=== PATIENT | female | born 1955 | race Caucasian/White ===

== ENCOUNTER → 2020-05-28 13:57 | Outpatient (CLI) | payer SELFPAY ==
--- NOTE | 2020-05-28 14:05 | VDLE_ITS ---
Reason For Study: Pain, Swelling RIGHT LEFT GSV is normal. CFV is compressible, spontaneous, phasic, CFV is compressible, spontaneous, phasic, competent, and demonstrates normal competent and demonstrates normal augmentation. augmentation. FV is compressible, spontaneous, phasic, FV is compressible, spontaneous, phasic, competent and demonstrates normal competent and demonstrates normal augmentation. augmentation. POP V is compressible, spontaneous, phasic, POP V is compressible, spontaneous, phasic, competent and demonstrates normal competent and demonstrates normal augmentation. augmentation. T/P Trunk is compressible. T/P Trunk is compressible. PTV is compressible. PTV is compressible. LT PerV is compressible. RT PerV is compressible. SFJ is competent and measures 1.09 x 1.11 cm. SFJ is INCOMPETENT and measures 1.3 x 1.3 cm. GSV proximal thigh measures 0.39 x 0.37 cm. GSV proximal thigh measures 0.66 x 0.79 cm. GSV at knee measures 0.17 x 0.21 cm. GSV at knee measures 0.48 x 0.50 cm. GSV is competent throughout. GSV INCOMPETENT throughout for greater than SSV proximal calf is competent and measures 0.5 seconds. 0.12 x 0.17 cm. SSV at junction is competent and measures 0.26 x 0.34 cm. Procedure This is a venous duplex using B-mode, color flow and spectral Doppler. Exam performed in department. A preliminary report was called and/or faxed to [facility]. Interpretation Summary Deep veins of the lower extremities are bilaterally patent and compressible segmentally. There is no evidence of deep vein thrombosis on either side. Valvular competence appears intact within the proximal deep venous systems bilaterally. The great saphenous veins appear bilaterally patent and compressible segmentally. The right sapheno-femoral junction is incompetent . The left sapheno- femoral junction is competent . The right great saphenous vein appears segmentally incompetent. The left great saphenous vein appears segmentally competent. Small saphenous veins are patent and competent bilaterally. Ordering Physician: Adan Younger Performed By: Alesia Gonzalez RVT and Student
== END ==
PROVIDERS: Referring Provider Surgery; Visit Provider Surgery
DX: M79.89 Other specified soft tissue disorders (principal)
CPT/HCPCS: 93970

== ENCOUNTER 2020-06-02 10:51 | Outpatient (RCR) | payer SELFPAY ==
[2020-06-02 11:36] VITALS: BP 159/85; PULSE 92; RESP 16; TEMP 36.6; BMI 32.3
--- NOTE | 2020-06-02 13:00 | PCM.WC.HP ---
(1) Chronic venous insufficiency Status: Chronic Code(s): I87.2 - Venous insufficiency (chronic) (peripheral) (2) Leg swelling Status: Chronic Code(s): M79.89 - Other specified soft tissue disorders (3) Leg edema, right Status: Chronic Code(s): R60.0 - Localized edema (4) Venous stasis dermatitis of right lower extremity Status: Chronic Code(s): I87.2 - Venous insufficiency (chronic) (peripheral) (5) Leg pain Status: Chronic Qualifiers: Laterality: right Qualified Code(s): M79.604 - Pain in right leg Code(s): M79.606 - Pain in leg, unspecified (6) Hypertension Status: Chronic Code(s): I10 - Essential (primary) hypertension (7) Obesity (BMI 30.0-34.9) Status: Chronic Code(s): E66.9 - Obesity, unspecified History of Present Illness Date of Service: 06/02/20 Chief Complaint: Venous stasis dermatitis, swelling, and edema of the right lower extremity. History of Wound: This is a relatively healthy 65-year-old white female who presented recently complaining of severe leg problems. Patient stated I have varicose veins and swelling. The symptoms have been manifest in the right lower extremity, and have been present for only approximately 1 month. She was briefly treated with a course of prednisone by her primary care physician. However, she is not currently taking prednisone. She sleeps on a flat mattress at night. She is also active. She denies a history of thrombophlebitis. Pain has accompanied the swelling and edema in her right lower extremity. Past Medical History Past Medical History: Chronic Problems Chronic venous insufficiency (Chronic) Leg swelling (Chronic) Leg edema, right (Chronic) Venous stasis dermatitis of right lower extremity (Chronic) Leg pain (Chronic) Hypertension (Chronic) Obesity (BMI 30.0-34.9) (Chronic) Past Medical History: Patient has a history of hypertension, recently diagnosed. She otherwise denies a history of myocardial infarction, congestive heart failure, diabetes mellitus, cerebrovascular accident, cancer, renal disease, pulmonary disease, thyroid disease, hyperlipidemia, gastroesophageal reflux disease, and arthritis. Surgical History: - - The patient is undergone a x2 in the past. She has had a cyst removed from her throat. She is a G3, P3 Ab0. Allergies/Adverse Reactions: Allergies No Known Allergies Allergy (Verified 06/02/20 11:59) Home Medications: Ambulatory Orders Medication Instructions Recorded Lisinopril 5 mg PO DAILY 06/02/20 - Family History Paternal - - Patient's father at the age of 84 with a history of lung cancer. Patient's mother at the age of 81 with a history of lupus. 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. She denies the use of tobacco products. She consumes alcohol in moderate amounts. She is . Lives: Spouse/ Significant Other Smoking Status: Former smoker Tobacco Use: Non-smoker Alcohol: Occasional Drugs: None Review of Systems Constitutional: Denies: Chills, Fever, Weight Change Eyes: Denies: Pain, Vision Change HEENT: Denies: Difficulty Hearing, Difficulty Swallowing, Sinus Congestion Cardiovascular: Denies: Chest Pain, Palpitations Respiratory: Denies: Cough, Shortness of Breath Gastrointestinal: Denies: Diarrhea, Nausea, Vomiting Genitourinary: Denies: Dysuria, Hematuria Endocrine: Denies: Heat/ Cold Intolerance, Polydipsia, Polyuria Hematologic/ Lymphatic: Denies: Easy Bruising, Easy Bleeding - Physical Exam Vital Signs Temp Pulse Resp BP 98 F 92 16 159/85 H 06/02/20 11:36 06/02/20 11:36 06/02/20 11:36 06/02/20 11:36 General: Alert, Oriented x3, Cooperative, No apparent distress, Well developed, Well nourished HEENT: Atraumatic, PERRLA, EOMI, Normocephalic Oral: Moist Mucosa Neck: No JVD Lungs: Normal air movement Abdomen: Non-Distended Extremities: No clubbing, No cyanosis, No Calf Tenderness, - - Swelling and edema are noted in the patient's right lower extremity, which is moderate. Severe scaly venous stasis dermatitis and erythema are noted in the patient's right lower extremity. There are scattered superficial excoriations. There is no obvious sign of infection or cellulitis. Skin: - - Numerous dried scabs noted on the patient's left lower extremity and torso. Wound Measurements and Assessment WC - Nurse 1 - General Ulcer Measurement Start: 06/02/20 11:36 Freq: Status: Active Protocol: Activity Type Activity Date Activity User E-Sign Co-Sign Detail Recorded Client Recorded Date Recorded By Document 06/02/20 11:36 [facility] [id number] 06/02/20 11:55 [facility] 06/02/20 11:36 Wound Center Nurse 1 [Ulcer Assessment] #1- RLE CIRCUMFERENTIAL -Combined with other wound No -Current Size (cm) - Length 46 -Current Size (cm) - Width 40.8 -Current Size (cm) - Depth 0.1 -Total Square Cm 1876.8 -Date of Last Picture (Recall this 06/02/20 field) -Photo Taken Yes -Epithelialization None Present -Tunneling No -Undermining/Tunneling No -Circular Undermining No -Exudate Amt Medium -Exudate Type Serous -Wound Margin Distinct, Outline Attached -Granulation Amt Medium (34-66%) -Granulation Quality Red -Slough/Fibrin Yes -Necrosis Amt Small (1-33%) -Necrotic Tissue Type Adherent Slough -Texture (Azeb-wound Skin Appearance) No Abnormality, Excoriation, Scarring,Rash -Moisture (Azeb-wound Skin Appearance Assessed,Dry/ ) Scaly -Color (Azeb-wound Skin Appearance) Assessed, Erythema, Hemosiderin Staining -Temperature (Azeb-wound Skin No Abnormality Appearance) (Pt Warm) -Tenderness on Palpation (Azeb-wound Yes Skin Appearance) -Ulcer Cleansing SOAPY WATER -Foul Odor after Cleansing Yes [Edema Assessment] -Lower Limb Edema Present Yes -Right Calf (cm) 40.8 -Right Ankle (cm) 26.5 -Left Calf (cm) 39.1 -Left Ankle (cm) 24.2 Musculoskeletal: No Muscle Wasting Neurological: Cranial nerves II-XII grossly intact, Neuro grossly intact Psych/Mental Status: Normal Affect, Appropriate, Alert and oriented to time, place, person, mood and affect Debridement Note No debridement was completed today Assessment/Plan Active Problems Chronic venous insufficiency (Chronic) Leg swelling (Chronic) Leg edema, right (Chronic) Venous stasis dermatitis of right lower extremity (Chronic) Leg pain (Chronic) Hypertension (Chronic) Obesity (BMI 30.0-34.9) (Chronic) Assessment: This is a 65-year-old generally healthy and active white female who presents with findings suggestive of chronic venous insufficiency and venous stasis dermatitis in her right lower extremity. These manifestations are relatively recent in origin, having started approximately 1 month ago. A recent venous duplex examination, performed on May 28, 2020, reveals incompetence of the right saphenofemoral junction and the right great saphenous vein. There was no evidence of thrombophlebitis. In addition, routine laboratory studies have been recently performed, on May 30, 2020, with results as follows: White blood count 8.1, hemoglobin 13.4, hematocrit 41.9, platelets 371,000, sodium 139, potassium 4.1, chloride 104, BUN 8, creatinine 0.95, glucose 95, hemoglobin A1c 5.4, calcium 9.5, total bilirubin 0.50, AST 30, ALT 42, alkaline phosphatase 92, total protein 7.6, albumin 3.8, triglycerides 116, cholesterol 199, LDL cholesterol 94, VLDL cholesterol 23, HDL cholesterol 82. Plan: A lengthy discussion has been undertaken with the patient with regard to conservative treatment measures appropriate to the management of her right lower extremity presenting symptoms. The patient has been advised to continue sleeping on a flat mattress at night. She has been advised to elevate her lower extremities even during daytime hours. Elevation is to be to heart level, or higher. This is to be implemented as much as possible. Activity has been encouraged. Prolonged idle sitting has been discouraged. The patient has been advised to lose weight. She has been advised to optimize her nutritional intake. We are to implement compression by means of a multilayer Unna boot, which will be applied to the patient's right lower extremity. This will be changed twice weekly. It is anticipated that the compression, and the zinc oxide, will have beneficial effects with regard to the patient's suspected venous stasis dermatitis. Additionally, the multiple scabs on the patient's left lower extremity and torso are thought to represent a different etiology. She has been encouraged to seek evaluation by her primary care physician or by a gravity prospecting operator helper. The patient is to return in 1 week for reassessment. The patient stands 5 feet 5 inches tall. She weighs 200 pounds. Her BMI is 33.3, places her in an obese class I category. Weight loss has been recommended, in collaboration with her primary care physician in this regard has been advised. The patient is not a smoker. Influenza vaccine was not administered today.
== END 2020-06-08 23:59 ==
LOC: WC 10:51
PROVIDERS: Referring Provider Surgery; Visit Provider Surgery
DX: I87.2 Venous insufficiency (chronic) (peripheral) (principal); M79.89 Other specified soft tissue disorders; E66.9 Obesity, unspecified; R60.0 Localized edema; I10 Essential (primary) hypertension; M79.604 Pain in right leg; Z68.33 Body mass index [BMI] 33.0-33.9, adult
CPT/HCPCS: 29580; 99213; G0463

== ENCOUNTER 2020-06-30 09:00 | Outpatient (RCR) | payer SELFPAY ==
[2020-06-09 00:44] VITALS: BP 159/85; PULSE 92; RESP 16; TEMP 36.6
[2020-06-17 13:15] VITALS: BP 159/82; PULSE 98; RESP 18; TEMP 36.3; BMI 32.3
[2020-06-17 13:20] VITALS: BMI 32.3
[2020-06-17 13:57] VITALS: BP 155/88
--- NOTE | 2020-06-17 14:22 | PCM.WC.HP ---
(1) Chronic venous insufficiency Status: Chronic Code(s): I87.2 - Venous insufficiency (chronic) (peripheral) (2) Leg swelling Status: Chronic Code(s): M79.89 - Other specified soft tissue disorders (3) Leg edema, right Status: Chronic Code(s): R60.0 - Localized edema (4) Venous stasis dermatitis of right lower extremity Status: Chronic Code(s): I87.2 - Venous insufficiency (chronic) (peripheral) (5) Leg pain Status: Chronic Qualifiers: Laterality: right Code(s): M79.606 - Pain in leg, unspecified (6) Hypertension Status: Chronic Code(s): I10 - Essential (primary) hypertension (7) Obesity (BMI 30.0-34.9) Status: Chronic Code(s): E66.9 - Obesity, unspecified History of Present Illness Date of Service: 06/17/20 Chief Complaint: Venous stasis dermatitis, swelling, and edema of the right lower extremity. History of Wound: This is a relatively healthy 65-year-old white female who presented recently complaining of severe leg problems. Patient stated I have varicose veins and swelling. The symptoms have been manifest in the right lower extremity, and have been present for only approximately 1 month. She was briefly treated with a course of prednisone by her primary care physician. However, she is not currently taking prednisone. She sleeps on a flat mattress at night. She is also active. She denies a history of thrombophlebitis. Pain has accompanied the swelling and edema in her right lower extremity. Past Medical History Past Medical History: Chronic Problems Chronic venous insufficiency (Chronic) Leg swelling (Chronic) Leg edema, right (Chronic) Venous stasis dermatitis of right lower extremity (Chronic) Leg pain (Chronic) Hypertension (Chronic) Obesity (BMI 30.0-34.9) (Chronic) Surgical History: - - The patient is undergone a x2 in the past. She has had a cyst removed from her throat. She is a G3, P3 Ab0. Allergies/Adverse Reactions: Allergies No Known Allergies Allergy (Verified 06/02/20 11:59) Home Medications: Ambulatory Orders Medication Instructions Recorded Lisinopril 5 mg PO DAILY 06/02/20 - Family History Paternal - - Patient's father at the age of 84 with a history of lung cancer. Patient's mother at the age of 81 with a history of lupus. Smoking Status: Former smoker Tobacco Use: Non-smoker Review of Systems Constitutional: Denies: Chills, Fever, Weight Change Eyes: Denies: Pain, Vision Change HEENT: Denies: Difficulty Hearing, Difficulty Swallowing, Sinus Congestion Cardiovascular: Denies: Chest Pain, Palpitations Respiratory: Denies: Cough, Shortness of Breath Gastrointestinal: Denies: Diarrhea, Nausea, Vomiting Genitourinary: Denies: Dysuria, Hematuria Endocrine: Denies: Heat/ Cold Intolerance, Polydipsia, Polyuria Hematologic/ Lymphatic: Denies: Easy Bruising, Easy Bleeding - Physical Exam Vital Signs Temp Pulse Resp BP 97.3 F L 98 18 155/88 H 06/17/20 13:15 06/17/20 13:15 06/17/20 13:15 06/17/20 13:57 General: Alert, Oriented x3, Cooperative, No apparent distress, Well developed, Well nourished HEENT: Atraumatic, PERRLA, EOMI, Normocephalic Oral: Moist Mucosa Neck: No JVD Lungs: Normal air movement Abdomen: Non-Distended Extremities: No clubbing, No cyanosis, No Calf Tenderness, - - Moderate swelling and edema persist in the patient's right lower extremity. There are several superficial excoriations. Dermatitic changes persist, though much improved. Addt'l Wound Findings: There are several superficial excoriations in the right lower extremity. There is no sign of infection or cellulitis. The dermatitic changes in the right lower extremity persist, but are markedly improved. Wound Measurements and Assessment WC - Nurse 1 - General Ulcer Measurement Start: 06/17/20 13:15 Freq: Status: Active Protocol: Activity Type Activity Date Activity User E-Sign Co-Sign Detail Recorded Client Recorded Date Recorded By Document 06/17/20 13:15 IN [id number] 06/17/20 13:18 IN 06/17/20 13:15 Wound Center Nurse 1 [Ulcer Assessment] #1- RLE CIRCUMFERENTIAL -Current Size (cm) - Length 18 -Current Size (cm) - Width 38.5 -Total Square Cm 693.0 -Wound Margin Flat & Intact -Granulation Amt Large (67-100%) -Granulation Quality Pale,Vantage -Texture (Azeb-wound Skin Appearance) Assessed -Moisture (Azeb-wound Skin Appearance Assessed,Dry/ ) Scaly -Color (Azeb-wound Skin Appearance) Assessed -Temperature (Azeb-wound Skin No Abnormality Appearance) (Pt Warm) -Tenderness on Palpation (Azeb-wound No Skin Appearance) -Ulcer Cleansing Rinsed/ Irrigated with Saline -Foul Odor after Cleansing No -Anesthetic Used 4% Lidocaine Solution [Edema Assessment] -Right Calf (cm) 41 -Right Ankle (cm) 25.5 WC - Nurse 3 - General Ulcer D/C NN Start: 06/17/20 13:15 Freq: Status: Active Protocol: Activity Type Activity Date Activity User E-Sign Co-Sign Detail Recorded Client Recorded Date Recorded By Document 06/17/20 13:57 RB [id number] 06/17/20 13:59 RB 06/17/20 13:57 Wound Care Nurse 3 [Wound Dressing] #1- RLE CIRCUMFERENTIAL -Ulcer Cleansing Rinsed/ Irrigated with Saline [Compression Applied] Right -Multi-Layered Wrap Application Unna Boot - Right ($) [Post Procedure Tolerated] -Treatment Response Procedure Tolerated Well Vital Signs [Blood Pressure] -Blood Pressure (90/60-120/80) 155/88 H -Blood Pressure Mean (mm Hg) 110 -Source Monitor -Position Semi-Fowlers -Blood Pressure Location Left Arm Pain Scale: 0-10 Numeric [Pain] -Is Patient Pain Free? Yes Teaching: Wound Center [Wound Center Education] (Items with an * have Printed Materials Available- Please identify what is given to patient under the Teaching materials given to patient and caregiver Section. Compression Wraps & Stockings -Person Taught Patient -Teaching Method Discussion -Response to teaching Verbalize understanding - Visit Discharge [Visit Discharge Information] -Discharge Condition Stable -Ambulatory Status Ambulatory -Transportation Private Auto -Medication Reconcilliation completed No & provided to patient/care provider -Clinical Summary of Care Provided Yes Musculoskeletal: No Muscle Wasting Neurological: Cranial nerves II-XII grossly intact, Neuro grossly intact Psych/Mental Status: Normal Affect, Appropriate, Alert and oriented to time, place, person, mood and affect Debridement Note Post-Debridement Measurements/Treatment WC - Nurse 3 - General Ulcer D/C NN Start: 06/17/20 13:15 Freq: Status: Active Protocol: Activity Type Activity Date Activity User E-Sign Co-Sign Detail Recorded Client Recorded Date Recorded By Document 06/17/20 13:57 RB [id number] 06/17/20 13:59 RB 06/17/20 13:57 Wound Care Nurse 3 #1- RLE CIRCUMFERENTIAL -Ulcer Cleansing Rinsed/ Irrigated with Saline Right -Multi-Layered Wrap Application Unna Boot - Right ($) Treatment Response Procedure Tolerated Well Vital Signs Blood Pressure (90/60-120/80) 155/88 H Blood Pressure Mean (mm Hg) 110 Source Monitor Position Semi-Fowlers Blood Pressure Location Left Arm Pain Scale: 0-10 Numeric Is Patient Pain Free? Yes Teaching: Wound Center Compression Wraps & Stockings -Person Taught Patient -Teaching Method Discussion -Response to teaching Verbalize understanding WC - Visit Discharge Discharge Condition Stable Ambulatory Status Ambulatory Transportation Private Auto Medication Reconcilliation completed & No provided to patient/care provider Clinical Summary of Care Provided Yes No debridement was completed today Assessment/Plan Active Problems Chronic venous insufficiency (Chronic) Leg swelling (Chronic) Leg edema, right (Chronic) Venous stasis dermatitis of right lower extremity (Chronic) Leg pain (Chronic) Hypertension (Chronic) Obesity (BMI 30.0-34.9) (Chronic) Assessment: This is a 65-year-old generally healthy and active white female who presents with findings suggestive of chronic venous insufficiency and venous stasis dermatitis in her right lower extremity. These manifestations are relatively recent in origin, having started approximately 1 month prior to presentation. A recent venous duplex examination, performed on May 28, 2020, revealed incompetence of the right saphenofemoral junction and the right great saphenous vein. There was no evidence of thrombophlebitis. In addition, routine laboratory studies have been recently performed, on May 30, 2020, with results as follows: White blood count 8.1, hemoglobin 13.4, hematocrit 41.9, platelets 371,000, sodium 139, potassium 4.1, chloride 104, BUN 8, creatinine 0.95, glucose 95, hemoglobin A1c 5.4, calcium 9.5, total bilirubin 0.50, AST 30, ALT 42, alkaline phosphatase 92, total protein 7.6, albumin 3.8, triglycerides 116, cholesterol 199, LDL cholesterol 94, VLDL cholesterol 23, HDL cholesterol 82. Plan: A lengthy discussion has been undertaken with the patient with regard to conservative treatment measures appropriate to the management of her right lower extremity presenting symptoms. The patient has been advised to continue sleeping on a flat mattress at night. She has been advised to elevate her lower extremities even during daytime hours. Elevation is to be to heart level, or higher. This is to be implemented as much as possible. Activity has been encouraged. Prolonged idle sitting has been discouraged. The patient has been advised to lose weight. She has been advised to optimize her nutritional intake. The patient has missed several recent appointments due to a positive diagnosis of COVID-19. She is now fully recovered. In addition, cultures have recently been obtained by her primary care physician of the excoriations in her right lower extremity. According the patient, these cultures were positive for MRSA, and the patient has been on 2 courses of oral antibiotics, each different. We are to request recent records from the patient's primary care physician. We are to continue compression by means of a multilayer Unna boot, which will be applied to the patient's right lower extremity. This will be changed twice weekly. It is anticipated that the compression, and the zinc oxide, will have beneficial effects with regard to the patient's suspected venous stasis dermatitis. Additionally, multiple scabs on the patient's left lower extremity and torso have been noted recently. She had been encouraged to seek evaluation by her primary care physician or by a meat cutter apprentice. In retrospect, they may have been related to MRSA, for which she is currently receiving antibiotics. The patient is to return in 1 week for reassessment. The patient stands 5 feet 5 inches tall. She weighs 200 pounds. Her BMI is 33.3, places her in an obese class I category. Weight loss has been recommended, in collaboration with her primary care physician in this regard has been advised. The patient is not a smoker. Influenza vaccine was not administered today.
[2020-06-19 12:46] VITALS: BP 140/69; PULSE 84; RESP 18; TEMP 36.7; BMI 32.3
[2020-06-23 08:01] VITALS: BP 154/83; PULSE 90; RESP 16; TEMP 36.1; BMI 32.3
--- NOTE | 2020-06-23 08:30 | HP.PCM_ITS ---
(1) Chronic venous insufficiency Status: Chronic Code(s): I87.2 - Venous insufficiency (chronic) (peripheral) (2) Leg swelling Status: Chronic Code(s): M79.89 - Other specified soft tissue disorders (3) Leg edema, right Status: Chronic Code(s): R60.0 - Localized edema (4) Venous stasis dermatitis of right lower extremity Status: Chronic Code(s): I87.2 - Venous insufficiency (chronic) (peripheral) (5) Leg pain Status: Chronic Qualifiers: Laterality: right Code(s): M79.606 - Pain in leg, unspecified (6) Hypertension Status: Chronic Code(s): I10 - Essential (primary) hypertension (7) Obesity (BMI 30.0-34.9) Status: Chronic Code(s): E66.9 - Obesity, unspecified History of Present Illness Date of Service: 06/23/20 Chief Complaint: Venous stasis dermatitis, swelling, and edema of the right lower extremity. History of Wound: This is a relatively healthy 65-year-old white female who presented recently complaining of severe leg problems. Patient stated I have varicose veins and swelling. The symptoms were manifest in the right lower extremity, and had been present for only approximately 1 month. She was briefly treated with a course of prednisone by her primary care physician. She sleeps on a flat mattress at night. She is also active. She denies a history of thrombophlebitis. Pain had accompanied the swelling and edema in her right lower extremity. Past Medical History Past Medical History: Chronic Problems Chronic venous insufficiency (Chronic) Leg swelling (Chronic) Leg edema, right (Chronic) Venous stasis dermatitis of right lower extremity (Chronic) Leg pain (Chronic) Hypertension (Chronic) Obesity (BMI 30.0-34.9) (Chronic) Surgical History: - - The patient is undergone a x2 in the past. She has had a cyst removed from her throat. She is a G3, P3 Ab0. Allergies/Adverse Reactions: Allergies No Known Allergies Allergy (Verified 06/02/20 11:59) Home Medications: Ambulatory Orders Medication Instructions Recorded Lisinopril 5 mg PO DAILY 06/02/20 - Family History Paternal - - Patient's father at the age of 84 with a history of lung cancer. Patient's mother at the age of 81 with a history of lupus. Smoking Status: Former smoker Tobacco Use: Non-smoker Review of Systems Constitutional: Denies: Chills, Fever, Weight Change Eyes: Denies: Pain, Vision Change HEENT: Denies: Difficulty Hearing, Difficulty Swallowing, Sinus Congestion Cardiovascular: Denies: Chest Pain, Palpitations Respiratory: Denies: Cough, Shortness of Breath Gastrointestinal: Denies: Diarrhea, Nausea, Vomiting Genitourinary: Denies: Dysuria, Hematuria Endocrine: Denies: Heat/ Cold Intolerance, Polydipsia, Polyuria Hematologic/ Lymphatic: Denies: Easy Bruising, Easy Bleeding - Physical Exam Vital Signs Temp Pulse Resp BP 96.9 F L 90 16 154/83 H 06/23/20 08:01 06/23/20 08:01 06/23/20 08:01 06/23/20 08:01 General: Alert, Oriented x3, Cooperative, No apparent distress, Well developed, Well nourished HEENT: Atraumatic, PERRLA, EOMI, Normocephalic Oral: Moist Mucosa Neck: No JVD Lungs: Normal air movement Abdomen: Non-Distended Extremities: No clubbing, No cyanosis, No Calf Tenderness, - - Only very slight swelling and edema persist in the patient's right lower extremity. There has been significant improvement. The inflammatory erythema is markedly improved as well, nearly totally abated. Addt'l Wound Findings: There are no mable open wounds on the patient's right lower extremity. There are, however, several very superficial excoriations just below the knee. With respect to the erythema, swelling, and dermatitis, there has been marked improvement in recent weeks. Wound Measurements and Assessment WC - Nurse 1 - General Ulcer Measurement Start: 06/17/20 13:15 Freq: Status: Active Protocol: Activity Type Activity Date Activity User E-Sign Co-Sign Detail Recorded Client Recorded Date Recorded By Document 06/23/20 08:01 MW [id number] 06/23/20 08:05 MW 06/23/20 08:01 Wound Center Nurse 1 [Ulcer Assessment] #1- RLE CIRCUMFERENTIAL -Combined with other wound No -Current Size (cm) - Length 0.1 -Current Size (cm) - Width 0.1 -Current Size (cm) - Depth 0.1 -Total Square Cm 0.01 -Photo Taken No -Epithelialization Large 67-100% -Tunneling No -Undermining/Tunneling No -Circular Undermining No -Exudate Amt None Present -Granulation Amt None Present (0 %) -Granulation Quality N/A -Slough/Fibrin No -Necrosis Amt None Present (0 %) -Texture (Azeb-wound Skin Appearance) Assessed, Localized Edema -Moisture (Azeb-wound Skin Appearance No Abnormality, ) Assessed -Color (Azeb-wound Skin Appearance) Assessed, Hemosiderin Staining -Temperature (Azeb-wound Skin No Abnormality Appearance) (Pt Warm) -Tenderness on Palpation (Azeb-wound Yes Skin Appearance) -Ulcer Cleansing SOAP AND WATER -Foul Odor after Cleansing No [Edema Assessment] -Lower Limb Edema Present Yes -Right Calf (cm) 40.0 -Right Ankle (cm) 24.4 - Nurse 3 - General Ulcer D/C NN Start: 06/17/20 13:15 Freq: Status: Active Protocol: Activity Type Activity Date Activity User E-Sign Co-Sign Detail Recorded Client Recorded Date Recorded By Document 06/23/20 08:24 [facility] [id number] 06/23/20 08:25 [facility] 06/23/20 08:24 Wound Care Nurse 3 [Wound Dressing] #1- RLE CIRCUMFERENTIAL -Primary Dressing Applied Other -Other Dressing PT TO USE ZINC OXIDE AT HOME [Compression Applied] Right -Compression Wrap Surepress ($) [Post Procedure Tolerated] -Treatment Response Procedure Tolerated Well Pain Scale: 0-10 Numeric [Pain] -Is Patient Pain Free? Yes - Visit Discharge [Visit Discharge Information] -Discharge Condition Stable -Ambulatory Status Ambulatory -Transportation Private Auto Musculoskeletal: No Muscle Wasting Neurological: Cranial nerves II-XII grossly intact, Neuro grossly intact Psych/Mental Status: Normal Affect, Appropriate, Alert and oriented to time, place, person, mood and affect Debridement Note Post-Debridement Measurements/Treatment - Nurse 2 - General Ulcer CM Notes Start: 06/17/20 13:15 Freq: Status: Active Protocol: Activity Type Activity Date Activity User E-Sign Co-Sign Detail Recorded Client Recorded Date Recorded By Document 06/17/20 14:31 PL [id number] 06/17/20 14:31 PL 06/17/20 14:31 Wound Center Nurse 2 #1- RLE CIRCUMFERENTIAL -Procedure Performed No Pain Scale: 0-10 Numeric Is Patient Pain Free? Yes - Nurse 3 - General Ulcer D/C NN Start: 06/17/20 13:15 Freq: Status: Active Protocol: Activity Type Activity Date Activity User E-Sign Co-Sign Detail Recorded Client Recorded Date Recorded By Document 06/17/20 13:57 RB [id number] 06/17/20 13:59 RB Document 06/19/20 12:46 DL [id number] 06/19/20 12:56 DL Document 06/23/20 08:24 BMF [id number] 06/23/20 08:25 BMF 06/17/20 06/19/20 06/23/20 13:57 12:46 08:24 Wound Care Nurse 3 #1- RLE CIRCUMFERENTIAL -Ulcer Cleansing Rinsed/ Wound Cleanser Irrigated with Saline -Foul Odor after Cleansing No -Primary Dressing Applied Other -Other Dressing PT TO USE ZINC OXIDE AT HOME Right -Multi-Layered Wrap Application Unna Boot - Unna Boot - Right ($) Right ($) -Compression Wrap Unna Boot ($) ( Surepress ($) single) Treatment Response Procedure Procedure Procedure Tolerated Well Tolerated Well Tolerated Well Temperature (97.8 F-99.1 F) 98.1 F Temperature Source Temporal Pulse Rate (60-100) 84 Pulse Location Monitor Respiratory Rate (12-18) 18 Respiratory rate source Observation Vital Signs Blood Pressure (90/60-120/80) 155/88 H 140/69 H Blood Pressure Mean (mm Hg) 110 92 Source Monitor Monitor Position Semi-Fowlers Blood Pressure Location Left Arm Pain Scale: 0-10 Numeric Is Patient Pain Free? Yes Yes Yes Teaching: Wound Center Compression Wraps & Stockings -Person Taught Patient -Teaching Method Discussion -Response to teaching Verbalize understanding WC - Visit Discharge Discharge Condition Stable Stable Stable Ambulatory Status Ambulatory Ambulatory Ambulatory Transportation Private Auto Private Auto Private Auto Medication Reconcilliation completed & No provided to patient/care provider Clinical Summary of Care Provided Yes No debridement was completed today Assessment/Plan Active Problems Chronic venous insufficiency (Chronic) Leg swelling (Chronic) Leg edema, right (Chronic) Venous stasis dermatitis of right lower extremity (Chronic) Leg pain (Chronic) Hypertension (Chronic) Obesity (BMI 30.0-34.9) (Chronic) Assessment: This is a 65-year-old generally healthy and active white female who presented with findings suggestive of chronic venous insufficiency and venous stasis dermatitis in her right lower extremity. These manifestations were relatively recent in origin, having started approximately 1 month prior to presentation. A recent venous duplex examination, performed on May 28, 2020, revealed incompetence of the right saphenofemoral junction and the right great saphenous vein. There was no evidence of thrombophlebitis. In addition, routine laboratory studies have been recently performed, on May 30, 2020, with results as follows: White blood count 8.1, hemoglobin 13.4, hematocrit 41.9, platelets 371,000, sodium 139, potassium 4.1, chloride 104, BUN 8, creatinine 0.95, glucose 95, hemoglobin A1c 5.4, calcium 9.5, total bilirubin 0.50, AST 30, ALT 42, alkaline phosphatase 92, total protein 7.6, albumin 3.8, triglycerides 116, cholesterol 199, LDL cholesterol 94, VLDL cholesterol 23, HDL cholesterol 82. Plan: A lengthy discussion has been undertaken with the patient with regard to conservative treatment measures appropriate to the management of her right lower extremity presenting symptoms. The patient has been advised to continue sleeping on a flat mattress at night. She has been advised to elevate her lower extremities even during daytime hours. Elevation is to be to heart level, or higher. This is to be implemented as much as possible. Activity has been encouraged. Prolonged idle sitting has been discouraged. The patient has been advised to lose weight. She has been advised to optimize her nutritional intake. The patient has missed several recent appointments due to a positive diagnosis of COVID-19. She is now fully recovered. In addition, cultures have recently been obtained by her primary care physician of the excoriations in her right lower extremity. These cultures were positive for MRSA, and the patient has been on 2 different courses of oral antibiotics, the second of which is now nearly completed. We are to request recent records from the patient's primary care physician. We are to continue compression by means of a SurePress compression wrap, which will be applied by the patient on a daily basis. She has been instructed in the appropriate means of application. With respect to the several small superficial excoriations below the knee, the patient is to apply zinc oxide and gauze, and incorporate within the SurePress wrap each day. It is anticipated that the compression, and the zinc oxide, will have beneficial effects with regard to the patient's venous stasis dermatitis. The patient is to return in 1 week for reassessment. The patient stands 5 feet 5 inches tall. She weighs 200 pounds. Her BMI is 33.3, places her in an obese class I category. Weight loss has been recommended, in collaboration with her primary care physician in this regard has been advised. The patient is not a smoker. Influenza vaccine was not administered today.
[2020-06-30 08:53] VITALS: TEMP 36.2; BMI 32.3
--- NOTE | 2020-06-30 09:18 | PCM.WC.HP ---
(1) Chronic venous insufficiency Status: Chronic Code(s): I87.2 - Venous insufficiency (chronic) (peripheral) (2) Leg swelling Status: Chronic Code(s): M79.89 - Other specified soft tissue disorders (3) Leg edema, right Status: Chronic Code(s): R60.0 - Localized edema (4) Venous stasis dermatitis of right lower extremity Status: Chronic Code(s): I87.2 - Venous insufficiency (chronic) (peripheral) (5) Leg pain Status: Chronic Qualifiers: Laterality: right Code(s): M79.606 - Pain in leg, unspecified (6) Hypertension Status: Chronic Code(s): I10 - Essential (primary) hypertension (7) Obesity (BMI 30.0-34.9) Status: Chronic Code(s): E66.9 - Obesity, unspecified History of Present Illness Date of Service: 06/30/20 Chief Complaint: Venous stasis dermatitis, swelling, and edema of the right lower extremity. History of Wound: This is a relatively healthy 65-year-old white female who presented recently complaining of severe leg problems. Patient stated I have varicose veins and swelling. The symptoms were manifest in the right lower extremity, and had been present for only approximately 1 month. She was briefly treated with a course of prednisone by her primary care physician. She sleeps on a flat mattress at night. She is also active. She denies a history of thrombophlebitis. Pain had accompanied the swelling and edema in her right lower extremity. Past Medical History Past Medical History: Chronic Problems Chronic venous insufficiency (Chronic) Leg swelling (Chronic) Leg edema, right (Chronic) Venous stasis dermatitis of right lower extremity (Chronic) Leg pain (Chronic) Hypertension (Chronic) Obesity (BMI 30.0-34.9) (Chronic) Surgical History: - - The patient is undergone a x2 in the past. She has had a cyst removed from her throat. She is a G3, P3 Ab0. Allergies/Adverse Reactions: Allergies No Known Allergies Allergy (Verified 06/02/20 11:59) Home Medications: Ambulatory Orders Medication Instructions Recorded Lisinopril 5 mg PO DAILY 06/02/20 - Family History Paternal - - Patient's father at the age of 84 with a history of lung cancer. Patient's mother at the age of 81 with a history of lupus. Smoking Status: Former smoker Tobacco Use: Non-smoker Review of Systems Constitutional: Denies: Chills, Fever, Weight Change Eyes: Denies: Pain, Vision Change HEENT: Denies: Difficulty Hearing, Difficulty Swallowing, Sinus Congestion Cardiovascular: Denies: Chest Pain, Palpitations Respiratory: Denies: Cough, Shortness of Breath Gastrointestinal: Denies: Diarrhea, Nausea, Vomiting Genitourinary: Denies: Dysuria, Hematuria Endocrine: Denies: Heat/ Cold Intolerance, Polydipsia, Polyuria Hematologic/ Lymphatic: Denies: Easy Bruising, Easy Bleeding - Physical Exam Vital Signs Temp Pulse Resp BP 97.2 F L 90 16 154/83 H 06/30/20 08:53 06/23/20 08:01 06/23/20 08:01 06/23/20 08:01 General: Alert, Oriented x3, Cooperative, No apparent distress, Well developed, Well nourished HEENT: Atraumatic, PERRLA, EOMI, Normocephalic Oral: Moist Mucosa Neck: No JVD Lungs: Normal air movement Abdomen: Non-Distended Extremities: No clubbing, No cyanosis, No Calf Tenderness, - - Only slight swelling and edema noted in the patient's right lower extremity. However, it is much improved over prior visits. Addt'l Wound Findings: There are no mable open wounds or ulcerations on the patient's right lower extremity. However, there is diffuse scaly dermatitis between knee and ankle in the right lower extremity. There is no sign of infection or cellulitis. Wound Measurements and Assessment WC - Nurse 1 - General Ulcer Measurement Start: 06/17/20 13:15 Freq: Status: Active Protocol: Activity Type Activity Date Activity User E-Sign Co-Sign Detail Recorded Client Recorded Date Recorded By Document 06/30/20 08:53 MALISSA [id number] 06/30/20 08:58 KR 06/30/20 08:53 Wound Center Nurse 1 [Ulcer Assessment] #1- RLE CIRCUMFERENTIAL -Exudate Amt Small -Exudate Type Serosanguineous -Wound Margin Distinct, Outline Attached -Granulation Amt Small (1-33%) -Granulation Quality Red -Necrosis Amt Small (1-33%) -Necrotic Tissue Type Adherent Slough -Texture (Azeb-wound Skin Appearance) Assessed, Scarring -Moisture (Azeb-wound Skin Appearance Assessed,Dry/ ) Scaly -Color (Azeb-wound Skin Appearance) No Abnormality, Assessed -Temperature (Azeb-wound Skin No Abnormality Appearance) (Pt Warm) -Tenderness on Palpation (Azeb-wound No Skin Appearance) -Ulcer Cleansing SOAP AND WATER [Edema Assessment] -Right Calf (cm) 38.5 -Right Ankle (cm) 25.1 Musculoskeletal: No Muscle Wasting Neurological: Cranial nerves II-XII grossly intact, Neuro grossly intact Psych/Mental Status: Normal Affect, Appropriate, Alert and oriented to time, place, person, mood and affect Debridement Note Post-Debridement Measurements/Treatment WC - Nurse 2 - General Ulcer CM Notes Start: 06/17/20 13:15 Freq: Status: Active Protocol: Activity Type Activity Date Activity User E-Sign Co-Sign Detail Recorded Client Recorded Date Recorded By Document 06/17/20 14:31 PL [id number] 06/17/20 14:31 PL 06/17/20 14:31 Wound Center Nurse 2 #1- RLE CIRCUMFERENTIAL -Procedure Performed No Pain Scale: 0-10 Numeric Is Patient Pain Free? Yes WC - Nurse 3 - General Ulcer D/C NN Start: 06/17/20 13:15 Freq: Status: Active Protocol: Activity Type Activity Date Activity User E-Sign Co-Sign Detail Recorded Client Recorded Date Recorded By Document 06/17/20 13:57 RB [id number] 06/17/20 13:59 RB Document 06/19/20 12:46 DL [id number] 06/19/20 12:56 DL Document 06/23/20 08:24 [facility] [id number] 06/23/20 08:25 [facility] 06/17/20 06/19/20 06/23/20 13:57 12:46 08:24 Wound Care Nurse 3 #1- RLE CIRCUMFERENTIAL -Ulcer Cleansing Rinsed/ Wound Cleanser Irrigated with Saline -Foul Odor after Cleansing No -Primary Dressing Applied Other -Other Dressing PT TO USE ZINC OXIDE AT HOME Right -Multi-Layered Wrap Application Unna Boot - Unna Boot - Right ($) Right ($) -Compression Wrap Unna Boot ($) ( Surepress ($) single) Treatment Response Procedure Procedure Procedure Tolerated Well Tolerated Well Tolerated Well Temperature (97.8 F-99.1 F) 98.1 F Temperature Source Temporal Pulse Rate (60-100) 84 Pulse Location Monitor Respiratory Rate (12-18) 18 Respiratory rate source Observation Vital Signs Blood Pressure (90/60-120/80) 155/88 H 140/69 H Blood Pressure Mean (mm Hg) 110 92 Source Monitor Monitor Position Semi-Fowlers Blood Pressure Location Left Arm Pain Scale: 0-10 Numeric Is Patient Pain Free? Yes Yes Yes Teaching: Wound Center Compression Wraps & Stockings -Person Taught Patient -Teaching Method Discussion -Response to teaching Verbalize understanding WC - Visit Discharge Discharge Condition Stable Stable Stable Ambulatory Status Ambulatory Ambulatory Ambulatory Transportation Private Auto Private Auto Private Auto Medication Reconcilliation completed & No provided to patient/care provider Clinical Summary of Care Provided Yes No debridement was completed today - There are no mable open wounds or ulcerations. Assessment/Plan Active Problems Chronic venous insufficiency (Chronic) Leg swelling (Chronic) Leg edema, right (Chronic) Venous stasis dermatitis of right lower extremity (Chronic) Leg pain (Chronic) Hypertension (Chronic) Obesity (BMI 30.0-34.9) (Chronic) Assessment: This is a 65-year-old generally healthy and active white female who presented with findings suggestive of chronic venous insufficiency and venous stasis dermatitis in her right lower extremity. These manifestations were relatively recent in origin, having started approximately 1 month prior to presentation. A recent venous duplex examination, performed on May 28, 2020, revealed incompetence of the right saphenofemoral junction and the right great saphenous vein. There was no evidence of thrombophlebitis. In addition, routine laboratory studies have been recently performed, on May 30, 2020, with results as follows: White blood count 8.1, hemoglobin 13.4, hematocrit 41.9, platelets 371,000, sodium 139, potassium 4.1, chloride 104, BUN 8, creatinine 0.95, glucose 95, hemoglobin A1c 5.4, calcium 9.5, total bilirubin 0.50, AST 30, ALT 42, alkaline phosphatase 92, total protein 7.6, albumin 3.8, triglycerides 116, cholesterol 199, LDL cholesterol 94, VLDL cholesterol 23, HDL cholesterol 82. Plan: A lengthy discussion has been undertaken with the patient with regard to conservative treatment measures appropriate to the management of her right lower extremity presenting symptoms. The patient has been advised to continue sleeping on a flat mattress at night. She has been advised to elevate her lower extremities even during daytime hours. Elevation is to be to heart level, or higher. This is to be implemented as much as possible. Activity has been encouraged. Prolonged idle sitting has been discouraged. The patient has been advised to lose weight. She has been advised to optimize her nutritional intake. The patient has missed several recent appointments due to a positive diagnosis of COVID-19. She is now fully recovered. In addition, cultures have recently been obtained by her primary care physician of the excoriations in her right lower extremity. These cultures were positive for MRSA, and the patient has been on 2 different courses of oral antibiotics, the second of which is now completed. We are to request recent records from the patient's primary care physician. We are to continue compression by means of a SurePress compression wrap, which will be applied by the patient on a daily basis. She is also to continue applying zinc oxide topically to the dermatitic skin of the right lower extremity, which is rather diffuse between knee and ankle. She has been doing this on a daily basis, followed by sherice Martel. This protocol has allowed the patient to shower on a daily basis, for which she removes the wraps to shower, then reapplies the zinc oxide and compression wrap. It is anticipated that the compression, and the zinc oxide, will have beneficial effects with regard to the patient's scaly venous stasis dermatitis. Ultimately, the goal will be to transition the patient to the use of graduated compression stockings of at least 20 to 30 mmHg compression, worn on a daily basis. The patient is to return in 2 weeks for reassessment. The patient stands 5 feet 5 inches tall. She weighs 200 pounds. Her BMI is 33.3, places her in an obese class I category. Weight loss has been recommended, in collaboration with her primary care physician in this regard has been advised. The patient is not a smoker. Influenza vaccine was not administered today.
== END 2020-07-09 23:59 ==
LOC: WC 09:00
PROVIDERS: Referring Provider Surgery; Visit Provider Surgery
DX: I87.2 Venous insufficiency (chronic) (peripheral) (principal); M79.89 Other specified soft tissue disorders; R60.0 Localized edema; I10 Essential (primary) hypertension; E66.9 Obesity, unspecified; M79.604 Pain in right leg; Z79.899 Other long term (current) drug therapy; Z87.891 Personal history of nicotine dependence; Z68.33 Body mass index [BMI] 33.0-33.9, adult
CPT/HCPCS: 29580; 99212; G0463

== ENCOUNTER 2020-07-28 08:00 | Outpatient (RCR) | payer OTHER, SELFPAY ==
[2020-07-10 00:36] VITALS: BP 154/83; PULSE 90; RESP 16; TEMP 36.2
[2020-07-14 07:57] VITALS: RESP 16; TEMP 36; BMI 32.3
--- NOTE | 2020-07-14 08:44 | PCM.WC.HP ---
(1) Chronic venous insufficiency Status: Chronic Code(s): I87.2 - Venous insufficiency (chronic) (peripheral) (2) Leg swelling Status: Chronic Code(s): M79.89 - Other specified soft tissue disorders (3) Leg edema, right Status: Chronic Code(s): R60.0 - Localized edema (4) Venous stasis dermatitis of right lower extremity Status: Chronic Code(s): I87.2 - Venous insufficiency (chronic) (peripheral) (5) Leg pain Status: Chronic Qualifiers: Laterality: right Code(s): M79.606 - Pain in leg, unspecified (6) Hypertension Status: Chronic Code(s): I10 - Essential (primary) hypertension (7) Obesity (BMI 30.0-34.9) Status: Chronic Code(s): E66.9 - Obesity, unspecified History of Present Illness Date of Service: 07/14/20 Chief Complaint: Venous stasis dermatitis, swelling, and edema of the right lower extremity. History of Wound: This is a relatively healthy 65-year-old white female who presented recently complaining of severe leg problems. Patient stated I have varicose veins and swelling. The symptoms were manifest in the right lower extremity, and had been present for only approximately 1 month. She was briefly treated with a course of prednisone by her primary care physician. She sleeps on a flat mattress at night. She is also active. She denies a history of thrombophlebitis. Pain had accompanied the swelling and edema in her right lower extremity. Past Medical History Past Medical History: Chronic Problems Chronic venous insufficiency (Chronic) Leg swelling (Chronic) Leg edema, right (Chronic) Venous stasis dermatitis of right lower extremity (Chronic) Leg pain (Chronic) Hypertension (Chronic) Obesity (BMI 30.0-34.9) (Chronic) Surgical History: - - The patient is undergone a x2 in the past. She has had a cyst removed from her throat. She is a G3, P3 Ab0. Allergies/Adverse Reactions: Allergies No Known Allergies Allergy (Verified 06/02/20 11:59) Home Medications: Ambulatory Orders Medication Instructions Recorded Lisinopril 5 mg PO DAILY 06/02/20 - Family History Paternal - - Patient's father at the age of 84 with a history of lung cancer. Patient's mother at the age of 81 with a history of lupus. Smoking Status: Former smoker Tobacco Use: Non-smoker Review of Systems Constitutional: Denies: Chills, Fever, Weight Change Eyes: Denies: Pain, Vision Change HEENT: Denies: Difficulty Hearing, Difficulty Swallowing, Sinus Congestion Cardiovascular: Denies: Chest Pain, Palpitations Respiratory: Denies: Cough, Shortness of Breath Gastrointestinal: Denies: Diarrhea, Nausea, Vomiting Genitourinary: Denies: Dysuria, Hematuria Endocrine: Denies: Heat/ Cold Intolerance, Polydipsia, Polyuria Hematologic/ Lymphatic: Denies: Easy Bruising, Easy Bleeding - Physical Exam Vital Signs Temp Pulse Resp BP 96.8 F L 90 16 154/83 H 07/14/20 07:57 07/10/20 00:36 07/14/20 07:57 07/10/20 00:36 General: Alert, Oriented x3, Cooperative, No apparent distress, Well developed, Well nourished HEENT: Atraumatic, PERRLA, EOMI, Normocephalic Oral: Moist Mucosa Neck: No JVD Lungs: Normal air movement Abdomen: Non-Distended Extremities: No clubbing, No cyanosis, No edema, No Calf Tenderness, - - There is marked improvement noted in the patient's right lower extremity. The swelling has now been reduced, and there is no significant swelling or edema. There are no mable open wounds or ulcerations in the right lower extremity. The dermatitic changes are now minimal. Wound Measurements and Assessment WC - Nurse 1 - General Ulcer Measurement Start: 07/14/20 07:57 Freq: Status: Active Protocol: Activity Type Activity Date Activity User E-Sign Co-Sign Detail Recorded Client Recorded Date Recorded By Document 07/14/20 07:57 [facility] [id number] 07/14/20 08:03 [facility] 07/14/20 07:57 Wound Center Nurse 1 [Ulcer Assessment] #1- RLE CIRCUMFERENTIAL -Combined with other wound No -Current Size (cm) - Length 0.1 -Current Size (cm) - Width 0.1 -Current Size (cm) - Depth 0.1 -Total Square Cm 0.01 -Epithelialization Large 67-100% -Texture (Azeb-wound Skin Appearance) Assessed -Moisture (Azeb-wound Skin Appearance Assessed ) -Color (Azeb-wound Skin Appearance) Assessed -Temperature (Azeb-wound Skin No Abnormality Appearance) (Pt Warm) -Tenderness on Palpation (Azeb-wound No Skin Appearance) -Ulcer Cleansing soapy water -Foul Odor after Cleansing No [Edema Assessment] -Lower Limb Edema Present Yes -Right Calf (cm) 39.3 -Right Ankle (cm) 24.6 Musculoskeletal: No Muscle Wasting Neurological: Cranial nerves II-XII grossly intact, Neuro grossly intact Psych/Mental Status: Normal Affect, Appropriate, Alert and oriented to time, place, person, mood and affect Debridement Note No debridement was completed today - There are no open wounds or ulcerations in the patient's right lower extremity. Assessment/Plan Assessment: This is a 65-year-old generally healthy and active white female who presented with findings suggestive of chronic venous insufficiency and venous stasis dermatitis in her right lower extremity. These manifestations were relatively recent in origin, having started approximately 1 month prior to presentation. A recent venous duplex examination, performed on May 28, 2020, revealed incompetence of the right saphenofemoral junction and the right great saphenous vein. There was no evidence of thrombophlebitis. In addition, routine laboratory studies have been recently performed, on May 30, 2020, with results as follows: White blood count 8.1, hemoglobin 13.4, hematocrit 41.9, platelets 371,000, sodium 139, potassium 4.1, chloride 104, BUN 8, creatinine 0.95, glucose 95, hemoglobin A1c 5.4, calcium 9.5, total bilirubin 0.50, AST 30, ALT 42, alkaline phosphatase 92, total protein 7.6, albumin 3.8, triglycerides 116, cholesterol 199, LDL cholesterol 94, VLDL cholesterol 23, HDL cholesterol 82. Plan: A lengthy discussion has been undertaken with the patient with regard to conservative treatment measures appropriate to the management of her right lower extremity presenting symptoms. The patient has been advised to continue sleeping on a flat mattress at night. She has been advised to elevate her lower extremities even during daytime hours. Elevation is to be to heart level, or higher. This is to be implemented as much as possible. Activity has been encouraged. Prolonged idle sitting has been discouraged. The patient has been advised to lose weight. She has been advised to optimize her nutritional intake. We are to continue compression by means of a SurePress compression wrap, which will be applied by the patient on a daily basis. However, she has been provided a prescription for knee-high graduated compression stockings of 20 to 30 mmHg compression, and is to obtain these within the next several days. She will then begin wearing these on a daily basis. She is to use zinc oxide or a skin moisturizing lotion at night before retiring and after removing her graduated compression stockings each day. The patient is to return in 2 weeks for reassessment. If she is doing well at that time, it is likely that she will be discharged from our wound center. We have discussed the potential role of endovenous ablation of the patient's incompetent right great saphenous vein. This would likely provide benefit to the patient, and will be discussed further upon the patient's return visit. The patient stands 5 feet 5 inches tall. She weighs 200 pounds. Her BMI is 33.3, places her in an obese class I category. Weight loss has been recommended, in collaboration with her primary care physician in this regard has been advised. The patient is not a smoker. Influenza vaccine was not administered today. Total time: 26 minutes.
[2020-07-28 08:03] VITALS: BP 178/77; PULSE 75; TEMP 36.6; BMI 32.3
--- NOTE | 2020-07-28 08:34 | HP.PCM_ITS ---
(1) Chronic venous insufficiency Status: Chronic Code(s): I87.2 - Venous insufficiency (chronic) (peripheral) (2) Leg swelling Status: Chronic Code(s): M79.89 - Other specified soft tissue disorders (3) Leg edema, right Status: Chronic Code(s): R60.0 - Localized edema (4) Venous stasis dermatitis of right lower extremity Status: Chronic Code(s): I87.2 - Venous insufficiency (chronic) (peripheral) (5) Leg pain Status: Chronic Qualifiers: Laterality: right Code(s): M79.606 - Pain in leg, unspecified (6) Hypertension Status: Chronic Code(s): I10 - Essential (primary) hypertension (7) Obesity (BMI 30.0-34.9) Status: Chronic Code(s): E66.9 - Obesity, unspecified History of Present Illness Date of Service: 07/28/20 Chief Complaint: Venous stasis dermatitis, swelling, and edema of the right lower extremity. History of Wound: This is a relatively healthy 65-year-old white female who presented recently complaining of severe leg problems. Patient stated I have varicose veins and swelling. The symptoms were manifest in the right lower extremity, and had been present for only approximately 1 month. She was briefly treated with a course of prednisone by her primary care physician. She sleeps on a flat mattress at night. She is also active. She denies a history of thrombophlebitis. Pain had accompanied the swelling and edema in her right lower extremity. Past Medical History Past Medical History: Chronic Problems Chronic venous insufficiency (Chronic) Leg swelling (Chronic) Leg edema, right (Chronic) Venous stasis dermatitis of right lower extremity (Chronic) Leg pain (Chronic) Hypertension (Chronic) Obesity (BMI 30.0-34.9) (Chronic) Surgical History: - - The patient is undergone a x2 in the past. She has had a cyst removed from her throat. She is a G3, P3 Ab0. Allergies/Adverse Reactions: Allergies No Known Allergies Allergy (Verified 06/02/20 11:59) Home Medications: Ambulatory Orders Medication Instructions Recorded Lisinopril 5 mg PO DAILY 06/02/20 - Family History Paternal - - Patient's father at the age of 84 with a history of lung cancer. Patient's mother at the age of 81 with a history of lupus. Smoking Status: Former smoker Tobacco Use: Non-smoker Review of Systems Constitutional: Denies: Chills, Fever, Weight Change Eyes: Denies: Pain, Vision Change HEENT: Denies: Difficulty Hearing, Difficulty Swallowing, Sinus Congestion Cardiovascular: Denies: Chest Pain, Palpitations Respiratory: Denies: Cough, Shortness of Breath Gastrointestinal: Denies: Diarrhea, Nausea, Vomiting Genitourinary: Denies: Dysuria, Hematuria Endocrine: Denies: Heat/ Cold Intolerance, Polydipsia, Polyuria Hematologic/ Lymphatic: Denies: Easy Bruising, Easy Bleeding - Physical Exam Vital Signs Temp Pulse Resp BP 97.8 F 75 16 178/77 H 07/28/20 08:03 07/28/20 08:03 07/14/20 07:57 07/28/20 08:03 General: Alert, Oriented x3, Cooperative, No apparent distress, Well developed, Well nourished HEENT: Atraumatic, PERRLA, EOMI, Normocephalic Oral: Moist Mucosa Neck: No JVD Lungs: Normal air movement Abdomen: Non-Distended Extremities: No clubbing, No cyanosis, No edema, No Calf Tenderness Addt'l Wound Findings: There are no open wounds or ulcerations in the patient's right lower extremity. She is now completely healed. There is no significant swelling or edema in the right lower extremity. The dermatitic changes have abated. Skin: No rashes Wound Measurements and Assessment WC - Nurse 1 - General Ulcer Measurement Start: 07/14/20 07:57 Freq: Status: Active Protocol: Activity Type Activity Date Activity User E-Sign Co-Sign Detail Recorded Client Recorded Date Recorded By Document 07/28/20 08:03 KR [id number] 07/28/20 08:09 MALISSA 07/28/20 08:03 Wound Center Nurse 1 [Edema Assessment] -Right Calf (cm) 39.5 -Right Ankle (cm) 26.5 Musculoskeletal: No Muscle Wasting Neurological: Cranial nerves II-XII grossly intact, Neuro grossly intact Psych/Mental Status: Normal Affect, Appropriate, Alert and oriented to time, place, person, mood and affect Debridement Note Post-Debridement Measurements/Treatment WC - Nurse 2 - General Ulcer CM Notes Start: 07/14/20 07:57 Freq: Status: Active Protocol: Activity Type Activity Date Activity User E-Sign Co-Sign Detail Recorded Client Recorded Date Recorded By Document 07/14/20 09:09 PL [id number] 07/14/20 09:09 PL 07/14/20 09:09 Pain Scale: 0-10 Numeric Is Patient Pain Free? Yes - Nurse 3 - General Ulcer D/C NN Start: 07/14/20 07:57 Freq: Status: Active Protocol: Activity Type Activity Date Activity User E-Sign Co-Sign Detail Recorded Client Recorded Date Recorded By Document 07/14/20 08:49 [facility] [id number] 07/14/20 08:51 [facility] 07/14/20 08:49 Wound Care Nurse 3 Right -Compression Wrap Surepress ($) Treatment Response Procedure Tolerated Well Pain Scale: 0-10 Numeric Is Patient Pain Free? Yes - Visit Discharge Discharge Condition Stable Ambulatory Status Ambulatory Transportation Private Auto No debridement was completed today - There are no open wounds or ulcerations. Assessment/Plan Active Problems Chronic venous insufficiency (Chronic) Leg swelling (Chronic) Leg edema, right (Chronic) Venous stasis dermatitis of right lower extremity (Chronic) Leg pain (Chronic) Hypertension (Chronic) Obesity (BMI 30.0-34.9) (Chronic) Assessment: This is a 65-year-old generally healthy and active white female who presented with findings suggestive of chronic venous insufficiency and venous stasis dermatitis in her right lower extremity. These manifestations were relatively recent in origin, having started approximately 1 month prior to presentation. A recent venous duplex examination, performed on May 28, 2020, revealed incompetence of the right saphenofemoral junction and the right great saphenous vein. There was no evidence of thrombophlebitis. In addition, routine laboratory studies have been recently performed, on May 30, 2020, with results as follows: White blood count 8.1, hemoglobin 13.4, hematocrit 41.9, platelets 371,000, sodium 139, potassium 4.1, chloride 104, BUN 8, creatinine 0.95, glucose 95, hemoglobin A1c 5.4, calcium 9.5, total bilirubin 0.50, AST 30, ALT 42, alkaline phosphatase 92, total protein 7.6, albumin 3.8, triglycerides 116, cholesterol 199, LDL cholesterol 94, VLDL cholesterol 23, HDL cholesterol 82. Plan: A lengthy discussion has been undertaken with the patient with regard to conservative treatment measures appropriate to the management of her right lower extremity presenting symptoms. The patient has been advised to continue sleeping on a flat mattress at night. She has been advised to elevate her lower extremities even during daytime hours. Elevation is to be to heart level, or higher. This is to be implemented as much as possible. Activity has been encouraged. Prolonged idle sitting has been discouraged. The patient has been advised to lose weight. She has been advised to optimize her nutritional intake. The patient was provided a prescription for graduated compression stockings, knee-high length, of 20 to 30 mmHg compression. She has obtained the stockings, and has been wearing them on a daily basis, without complaints. We are to continue compression by means of graduated compression stockings, worn daily. The patient is to be discharged, and will follow-up henceforth on an as- needed basis. She is doing well and will be discharged from our wound center. We have discussed the potential role of endovenous ablation of the patient's incompetent right great saphenous vein. This would likely provide benefit to the patient, and has been discussed today thoroughly. The patient's questions have been answered. If she wishes to consider further, she has been encouraged to schedule a follow-up appointment in my office in the future. The patient stands 5 feet 5 inches tall. She weighs 200 pounds. Her BMI is 33.3, places her in an obese class I category. Weight loss has been recommended, in collaboration with her primary care physician in this regard has been advised. The patient is not a smoker. Influenza vaccine was not administered today. Total time: 27 minutes.
== END 2020-07-28 08:37 | disposition home or self-care (01) ==
LOC: WC 08:00
PROVIDERS: Referring Provider Surgery; Visit Provider Surgery
DX: I87.2 Venous insufficiency (chronic) (peripheral) (principal); M79.89 Other specified soft tissue disorders; R60.0 Localized edema; I10 Essential (primary) hypertension; M79.604 Pain in right leg; E66.9 Obesity, unspecified; Z87.891 Personal history of nicotine dependence; Z68.33 Body mass index [BMI] 33.0-33.9, adult
CPT/HCPCS: 99212; G0463

== ENCOUNTER 2021-09-15 16:13 | Outpatient (CLI) | payer OTHER, SELFPAY ==
[2021-09-15 16:35] LABS: Absolute Lymphocyte Count 1.56 X10^3/uL (0.83-4.51); Absolute Neutrophil Count 5.4 X10^3/uL (2.0-7.7); Basophil# 0.03 X10^3/uL; Basophil% 0.4 % (0-1); Eosinophil# 0.34 X10^3/uL; Eosinophils% 4.2 % (0-5); Hemoglobin 12.6 g/dL (12.0-15.0); Lymphocyte # 1.56 X10^3/ul (0.83-4.51); Lymphocyte % 19.3 % (19-41); Mean Corp Hgb Conc 34.1 g/dL (32-36); Mean Corpuscular Hgb 33.9 pg (27.0-32.0); Mean Corpuscular Volume 99.5 fL (81-99); Mean Platelet Vol. 9.8 fl (6.2-12.0); Monocyte# 0.78 X10^3/uL; Monocyte% 9.6 % (0-10); NRBC Flagged by Analyzer 0 % (0-5); Neutrophil # 5.36 X10^3/uL (2.7-7.7); Neutrophil % 66.1 % (47-70); Platelet Count 274 K/mm3 (150-450); RBC Distribution Width CV 12.3 % (11.6-14.6); Red Blood Count 3.72 M/mm3 (4.2-5.4); White Blood Count 8.1 K/mm3 (4.4-11.0)
[2021-09-15 16:49] LABS: Vitamin B12 569 pg/mL (211-911); Vitamin D,25 Hydroxy 46.9 ng/mL
[2021-09-15 17:00] LABS: Homocysteine 11.8 umol/L (3.2-10.7)
[2021-09-15 17:06] LABS: Hemoglobin A1c 5.4 % (3.8-5.6)
[2021-09-15 17:29] LABS: AST(SGOT) 35 U/L (15-37); Alanine Aminotransfer ALT/SGPT 49 U/L (13-56); Albumin, Serum 3.9 g/dL (3.2-5.0); Alkaline Phosphatase 98 U/L (45-117); Anion Gap 9 (5-15); BUN 28 mg/dL (7-18); Chloride 99 mmol/L (98-107); Cholesterol 221 mg/dL (200); Creatinine, Serum 1.22 mg/dL (0.55-1.02); EST Glomerular Filtration Rate 47 mL/min (>60); Est Glom Filt Rate - Afr Amer 57 mL/min (>60); Ferritin 170 ng/mL (8-252); Globulin 3.8 g/dL (2.2-4.2); Glucose 102 mg/dL (74-106); High Density Lipoprotein 73 mg/dL; Iron 73 ug/dL (50-170); Potassium 3.7 mmol/L (3.5-5.1); Protein, Total 7.7 g/dL (6.4-8.2); Sodium Level 133 mmol/L (136-145); Triglycerides 124 mg/dL; Very Low Density Lipoprotein 25 mg/dL (5-40)
== END 2021-09-15 23:59 | disposition home or self-care (01) ==
PROVIDERS: Visit Provider Nurse Practitioner Family
DX: R07.9 Chest pain, unspecified (principal); R53.83 Other fatigue
CPT/HCPCS: 80053; 80061; 82306; 82607; 82728; 82746; 83036; 83090; 83540; 85025

== ENCOUNTER 2021-09-23 15:03 | Outpatient (REF) | payer OTHER, SELFPAY ==
[2021-09-23 15:43] LABS: Bacteria 0 SEEN /hpf (None Seen); Mucous, Urine 0 SEEN /hpf (<or=2+); Red Blood Cells-Urine 0 SEEN /hpf (0-5); Squamous Epithelial Cells - UA 0 SEEN /hpf (5-10); White Blood Cells 0 SEEN /hpf (0-5)
[2021-09-23 16:11] LABS: Color, Urine Straw (Yellow); Glucose, Dipstick Normal (Normal); Ketone-Dipstick Negative (Negative); Leukocyte Esterase-Dipstick 25 /ul (Negative); Nitrite-Dipstick Negative (Negative); Occult Blood-Urine Negative /ul (Negative); Protein-Dipstick Negative (Negative); Urine Bilirubin Dipstick Negative (Negative); Urine Clarity Clear (Clear); Urine Urobilinogen Normal (Normal)
== END 2021-09-23 23:59 | disposition home or self-care (01) ==
LOC: LABSPEC 15:03
PROVIDERS: Visit Provider Nurse Practitioner Family
DX: N19 Unspecified kidney failure (principal); E87.1 Hypo-osmolality and hyponatremia
CPT/HCPCS: 81001; 82043; 82570

== ENCOUNTER 2021-09-27 08:06 | Outpatient (CLI) | payer OTHER, SELFPAY ==
[2021-09-25 14:26] LABS: ALB/GLOB Ratio 1.1 RATIO (0.9-2.4); AST(SGOT) 52 U/L (15-37); Alanine Aminotransfer ALT/SGPT 63 U/L (13-56); Albumin, Serum 3.9 g/dL (3.2-5.0); Alkaline Phosphatase 89 U/L (45-117); Anion Gap 6 (5-15); BUN 23 mg/dL (7-18); BUN/Creat Ratio 20.2 RATIO (10-20); Calcium,Total 9.5 mg/dL (8.5-10.1); Chloride 103 mmol/L (98-107); Creatinine, Serum 1.14 mg/dL (0.55-1.02); EST Glomerular Filtration Rate 51 mL/min (>60); Est Glom Filt Rate - Afr Amer 62 mL/min (>60); Globulin 3.4 g/dL (2.2-4.2); Glucose 100 mg/dL (74-106); Potassium 4.4 mmol/L (3.5-5.1); Protein, Total 7.3 g/dL (6.4-8.2); Sodium Level 136 mmol/L (136-145)
[2021-09-25 14:31] LABS: Microalbumin,Random Urine 14.8 mg/L (NO RANGE EST.); Microalbumin:Creatinine Ratio 14.4 mg/g CRE (<30 mg/g CRE)
== END 2021-09-27 23:59 | disposition home or self-care (01) ==
PROVIDERS: Visit Provider Nurse Practitioner Family
DX: N19 Unspecified kidney failure (principal); E87.1 Hypo-osmolality and hyponatremia
CPT/HCPCS: 80053; 82043; 82570; 84550

== ENCOUNTER 2021-09-30 07:36 | Outpatient (CLI) | payer OTHER, SELFPAY ==
--- NOTE | 2021-09-30 07:40 | BI_ITS ---
MAMMOGRAPHY - BILATERAL SCREENING REASON FOR EXAM: Female, 66 years old. Routine annual screening examination. PERTINENT HISTORY: Non-contributory. TECHNIQUE: Digital bilateral breast ludy (3D mammographic acquisition) in the CC and MLO projections. 2-D mediolateral oblique (MLO) and craniocaudad (CC) views of both breasts were obtained. CAD: Full Field Digital Mammography with Computer Added Detection was performed. COMPARISON: None. Baseline examination. FINDINGS: Breast Composition: There are scattered areas of fibroglandular density. There is a 4.9 mm x 3.1 mm nodular density in the upper lateral aspect of the right breast. Correlation with ultrasound is recommended. No other significant abnormalities are identified. BI/SCRN MAMM (CAD)W/LUDY BILAT IMPRESSION: 4.9 mm x 3.1 mm nodular density in the upper slightly lateral aspect of the right breast, correlation with ultrasound is recommended. ASSESSMENT CATEGORY: BIRADS Category 0: Incomplete. Need additional imaging evaluation. A letter regarding these results will be sent to the patient by the facility within 30 days. Approximately 10% of breast cancers are not detected by mammography. A normal mammogram should not delay biopsy of a clinically suspicious abnormality. [id number] Electronically Signed: Rohan Moreno MD at 8:18 EDT ,
--- NOTE | 2021-09-30 08:18 | US_ITS ---
STUDY: RENAL ULTRASOUND - COMPLETE REASON FOR EXAM: Female, 66 years old. RENAL FAILURE TECHNIQUE: Ultrasound evaluation of the kidneys was performed with real-time and static alvarez-scale imaging. COMPARISON: None. FINDINGS: RIGHT KIDNEY: Normal location of the right kidney, which is normal in size. The right kidney measures 10.8 cm x 5.17 x 5.2 cm. There is a normal cortex of the right kidney. The renal cortex measures 1.7 cm. There is no right renal mass or cyst. There are no right renal calculi. There is no right hydronephrosis. DISTAL RIGHT URETER: There is non-visualization of the distal right ureter. There is no demonstrated right ureterovesical junction calculus. There is a visualized right ureteral jet. LEFT KIDNEY: Normal location of the left kidney, which is normal in size. The left kidney measures 10.3 cm x 4.4 cm x 4.7 cm. There is a normal cortex of the left kidney. The renal cortex measures 1.6 cm. There is no left renal mass or cyst. There are no left renal calculi. There is no left hydronephrosis. DISTAL LEFT URETER: There is non-visualization of the distal left ureter. There is no demonstrated left ureterovesical junction calculus. There is a visualized left ureteral jet. BLADDER: The distended urinary bladder has a volume of 223 ml. There is a normal wall thickness of the distended urinary bladder. There is no demonstrated mass within the urinary bladder. There are no demonstrated bladder calculi. US/Kidney and Bladder IMPRESSION: Normal ultrasound of the kidneys and urinary bladder. Electronically Signed: Rohan Moreno MD at 13:58 EDT ,
== END 2021-09-30 23:59 | disposition home or self-care (01) ==
PROVIDERS: PCP Nurse Practitioner Family; Referring Provider Nurse Practitioner Family; Visit Provider Nurse Practitioner Family
DX: Z12.31 Encounter for screening mammogram for malignant neoplasm of breast (principal); N19 Unspecified kidney failure
CPT/HCPCS: 76770; 77063; 77067

== ENCOUNTER 2021-10-07 07:54 | Outpatient (CLI) | payer OTHER, SELFPAY ==
--- NOTE | 2021-10-07 07:56 | US_ITS ---
STUDY: ULTRASOUND BREAST - RIGHT REASON FOR EXAM: Female, 66 years old. TECHNIQUE: Axial and longitudinal images of the RIGHT breast were performed with a high resolution ultrasound transducer. # OF IMAGES: 25 COMPARISON: Comparison is made with prior mammogram dated 09/30/2021. FINDINGS: RIGHT Breast: The mammographic abnormality corresponds to a 5 mm x 6 mm x 5 mm slightly lobulated hypoechoic nodule with a focal eccentric isoechoic density with blood flow. This most likely represents a lymph node. Biopsy recommended. US/Breast Limited Unilateral IMPRESSION: 5 mm x 6 mm x 5 mm slightly lobulated hypoechoic nodule with a focal eccentric isoechoic density with blood flow as described. This most likely represents a small lymph node although tissue diagnosis is recommended. ASSESSMENT CATEGORY: BIRADS Category 4: Suspicious - Biopsy Should Be Considered. A letter regarding these results will be sent to the patient by the facility within 30 days. Electronically Signed: Rohan Moreno MD at 9:00 EDT ,
== END 2021-10-07 23:59 | disposition home or self-care (01) ==
PROVIDERS: PCP Nurse Practitioner Family; Visit Provider Nurse Practitioner Family
DX: R92.8 Other abnormal and inconclusive findings on diagnostic imaging of breast (principal)
CPT/HCPCS: 76642

== ENCOUNTER 2021-10-12 12:16 | Outpatient (CLI) | payer OTHER, SELFPAY ==
--- NOTE | 2021-10-12 | IMM_PTH ---
PATIENT: CHET MÉNDEZ LOC: [facility] U#:[id number] AGE/SX: 66/F ROOM: RE10/12/[address]: Dr. Juan Manuel Arthur MD : 1955 BED: DIS: 10/12/2021 SPEC #: [id number] RECD: 10/14/21 11:44 STATUS: SAURABH REQ #: [id number] TAJ: 10/12/21 00:[address]: Juan Manuel Arthur DEPT: IMMUNOHISTOCHEMISTRY RECD BY: Kristen Sales ENTERED: 10/14/21 11:45 SP TYPE: IMMUNO OTHR DR: Desiree Napier, SENIOR BILLING CONSULTANT-C Tissues: Right breast, NOS Procedures: BCL-2 (add) CD138 (add) CD15 (add) CD20 (add) CD3 (add) CD30 (add) CD45 (add) CD5 (add) CD79A (add) Pankeratin (initial) PHYSICIAN & [address] [address] SPECIMEN INFORMATION: Tissue Source: Right breast Clinical Info: Right breast mass Specimen Number: [id number] CPT code: 91052, 12295 x9 METHODOLOGY: Deparaffinized sections of prefer/formalin-fixed tissue or PAP/DQ stained slides are incubated with monoclonal/polyclonal antibodies/oligonucleotide probes. Localization is made via biotin free immunoperoxidase method. Appropriate controls are performed and reacted as expected. Results on target cell population are indicated in the following table: RESULTS: ANTIBODY / CLONE RESULT AE1-3 (AE1/AE3/PCK26) negative CD3 (PS1) positive CD5 (SP10) positive CD20 (L26) positive CD45 (RP2/18) positive CD79a (11E3) positive CD138 (B-A38) negative CD15 (MMA) negative CD30 (Radhames-H2) negative BCL-2 (bcl-2/100/D5) positive These tests were developed and their performance characteristics determined by [facility]. They may not have been cleared or approved by the U.S. Food and Drug Administration. The FDA has determined that such clearance or approval is not necessary. The above immunohistochemical/dualISH markers are ordered and reviewed by the Pathologist. INTERPRETATION: Right breast, core biopsy: Polytypic (benign) lymphoid tissue. AM:raymundo 10/15/2021
--- NOTE | 2021-10-12 15:30 | BRBX_PTH ---
PATIENT: CHET MÉNDEZ [facility] U[facility][id number] AGE/SX: 66/F ROOM: RE10/12/[address]: Dr. Juan Manuel Arthur MD : 1955 BED: DIS: 10/12/2021 SPEC #: [id number] RECD: 10/12/21 15:30 STATUS: SAURABH GAO #: [id number] TAJ: 10/12/21 15:[address]: Juan Manuel Arthur DEPT: SURGICAL PATHOLOGY RECD BY: Winston Rich ENTERED: 10/13/21 13:11 SP TYPE: BREAST BX OTHR DR: Desiree Napier, CHILDREN'S COUNSELOR-C Tissues: Right breast, NOS Procedures: Surgery Specimen Level IV HEADER OPERATION: Right breast biopsy PRE-OP DIAGNOSIS: Right breast mass TISSUE SUBMITTED: Right breast tissue MICROSCOPIC DIAGNOSIS Right breast mass, core biopsy: Benign lymphoid tissue. No evidence of malignancy. See comment. AM:[email or web address] 10/14/2021 COMMENT Immunohistochemistry ([id number]) reveals a polytypic lymphocytic population. The lesion may represent an intramammary lymph node. Clinical correlation is suggested. Case has been reviewed in consultation with Dr. Ortega who concurs with the above diagnosis. IDC:SJ MICROSCOPIC DESCRIPTION Slides are reviewed. GROSS DESCRIPTION Received in fixative is one container labeled with the patient's name and designated right breast. The specimen consists of multiple elongated fragments of huddleston-yellow fibroadipose tissue that in aggregate measure 1.2 x 0.5 x 0.1 cm. The entire specimen is submitted in one cassette. / SJ:raymundo 10/13/2021 TC:5 CPT: 76711
== END 2021-10-12 23:59 | disposition home or self-care (01) ==
LOC: LABSPEC 10-13 13:15
PROVIDERS: PCP Nurse Practitioner Family; Visit Provider Surgery
DX: N63.10 Unspecified lump in the right breast, unspecified quadrant (principal)
CPT/HCPCS: 88305; 88341; 88342

== ENCOUNTER → 2022-08-30 | Outpatient (CLI) | payer MEDICARE, SELFPAY ==
[2022-08-30 17:21] LABS: Absolute Lymphocyte Count 1.92 X10^3/uL (0.83-4.51); Basophil# 0.04 X10^3/uL; Basophil% 0.5 % (0-1); Eosinophils% 6.2 % (0-5); Hematocrit 39.9 % (37-47); Hemoglobin 13.8 g/dL (12.0-15.0); Lymphocyte # 1.92 X10^3/ul (0.83-4.51); Lymphocyte % 23.9 % (19-41); Mean Corp Hgb Conc 34.6 g/dL (32-36); Mean Corpuscular Hgb 32.6 pg (27.0-32.0); Mean Corpuscular Volume 94.3 fL (81-99); Mean Platelet Vol. 10.3 fl (6.2-12.0); Monocyte# 0.58 X10^3/uL; Monocyte% 7.2 % (0-10); NRBC Flagged by Analyzer 0 % (0-5); Neutrophil # 4.96 X10^3/uL (2.7-7.7); Platelet Count 292 K/mm3 (150-450); RBC Distribution Width CV 11.9 % (11.6-14.6); RBC Distribution Width SD 40.8 fl (35.1-43.9); Red Blood Count 4.23 M/mm3 (4.2-5.4)
[2022-08-30 18:24] LABS: ALB/GLOB Ratio 1.2 RATIO (0.9-2.4); AST(SGOT) 27 U/L (15-37); Alanine Aminotransfer ALT/SGPT 37 U/L (13-56); Albumin, Serum 4.3 g/dL (3.2-5.0); Alkaline Phosphatase 91 U/L (45-117); Anion Gap 10 (5-15); BUN 13 mg/dL (7-18); BUN/Creat Ratio 16.1 RATIO (10-20); Calcium,Total 10.2 mg/dL (8.5-10.1); Chloride 98 mmol/L (98-107); Cholesterol 275 mg/dL (200); EST Glomerular Filtration Rate 76 mL/min (>60); Est Glom Filt Rate - Afr Amer 92 mL/min (>60); Estradiol 23.1 pg/mL; Ferritin 197 ng/mL (8-252); Free T3 2.6 pg/mL (2.18-3.98); Globulin 3.7 g/dL (2.2-4.2); Glucose 102 mg/dL (74-106); High Density Lipoprotein 79 mg/dL; Iron 50 ug/dL (50-170); Potassium 4.4 mmol/L (3.5-5.1); Sodium Level 133 mmol/L (136-145); T4 Free Direct 0.87 ng/dL (0.76-1.46); Thyroid Stim Hormone (TSH) 3.13 uIU/mL (0.358-3.74); Triglycerides 117 mg/dL; Very Low Density Lipoprotein 23 mg/dL (5-40)
[2022-08-30 22:40] LABS: Progesterone Level < 0.21 ng/mL (See Comment)
[2022-08-30 23:06] LABS: Hemoglobin A1c 5.6 % (3.8-5.6)
[2022-09-01 23:02] LABS: DHEA Sulfate 99.7 ug/dL (20.4-186.6)
== END | disposition home or self-care (01) ==
PROVIDERS: PCP Nurse Practitioner Family; Visit Provider Nurse Practitioner Family
DX: R53.82 Chronic fatigue, unspecified (principal); R63.5 Abnormal weight gain; E61.7 Deficiency of multiple nutrient elements; F32.A Depression, unspecified; E28.39 Other primary ovarian failure; R06.00 Dyspnea, unspecified; E55.9 Vitamin D deficiency, unspecified
CPT/HCPCS: 80053; 80061; 82627; 82670; 82728; 83036; 83540; 84144; 84403; 84439; 84443; 84481; 85025; 82626